=== PATIENT | male | born 1990 | race Caucasian/White ===

== ENCOUNTER 2025-06-30 05:55 | Emergency (ER) | payer MEDICARE, OTHER ==
[~2025-06-30] VITALS: Ht 190.5 cm; Wt 127.0 kg
[2025-06-30] MEDS ORDERED: ELIQUIS5 M2 PO (07:01)
[2025-06-30] MEDS ORDERED: AMAN100 PO (07:01)
[2025-06-30] MEDS ORDERED: QUET25 PO (07:01)
[2025-06-30] MEDS ORDERED: TIZANIDINE HCL2 M1 PO (07:01)
== END 2025-06-30 07:15 | disposition home or self-care (01) ==
LOC: ER 05:55
DX: Z76.0 Encounter for issue of repeat prescription (principal); Z86.711 Personal history of pulmonary embolism; Z86.718 Personal history of other venous thrombosis and embolism; Z79.01 Long term (current) use of anticoagulants; Z86.69 Personal history of other diseases of the nervous system and sense organs
CPT/HCPCS: 99281